=== PATIENT | female | born 1950 | race Caucasian/White ===

== ENCOUNTER 2016-06-08 10:07 | Outpatient (RCR) | payer MEDICARE ==
[~2016-06-08 10:07] MED LIST: AGM875T PO; AMOX-358 PO; DOCU-143 PO; EST.1TD TD; HYDR-3062 PO; HYDR-3583 PO; NAPR550T PO; [UNRECOGNIZED DRUG - CODE] PO; [UNRECOGNIZED DRUG - CODE] PO
[2016-06-08 11:20] LABS: BASOPHILS % (AUTO) 1 % (0-10); EOSINOPHILS # (AUTO) 0.5 10^3/uL (0.0-0.3); EOSINOPHILS % (AUTO) 8 % (0-10); LYMPHOCYTES # (AUTO) 1.6 X 10^3 (1.0-4.0); LYMPHOCYTES % (AUTO) 28 % (12-44); MEAN CORPUSCULAR HEMOGLOBIN 31 PG (25-34); MEAN CORPUSCULAR HGB CONC 33 G/DL (32-36); MEAN CORPUSCULAR VOLUME 92 FL (80-99); MEAN PLATELET VOLUME 9.4 FL (7.4-10.4); MONOCYTES % (AUTO) 17 % (0-12); NEUTROPHILS # (AUTO) 2.7 X 10^3 (1.8-7.8); NEUTROPHILS % (AUTO) 47 % (42-75); PLATELET COUNT 248 10^3/uL (130-400); RED BLOOD COUNT 4.29 10^6/uL (4.35-5.85); RED CELL DISTRIBUTION WIDTH 12.8 % (10.0-14.5); WHITE BLOOD COUNT 5.7 10^3/uL (4.3-11.0)
[2016-06-08 12:40] LABS: ALANINE AMINOTRANSFERASE 34 U/L (0-55); ALBUMIN 4.1 G/DL (3.2-4.5); ANION GAP 11 MMOL/L (5-14); ASPARTATE AMINO TRANSFERASE 31 U/L (5-34); BILIRUBIN,TOTAL 0.6 MG/DL (0.1-1.0); BLOOD UREA NITROGEN 9 MG/DL (7-18); BUN/CREATININE RATIO 12; CALCIUM 9.3 MG/DL (8.5-10.1); CARBON DIOXIDE 24 MMOL/L (21-32); CHLORIDE 107 MMOL/L (98-107); CREATININE SERUM 0.74 MG/DL (0.60-1.30); GFR ESTIMATED > 60; GLUCOSE 103 MG/DL (70-105); POTASSIUM 4.5 MMOL/L (3.6-5.0); SODIUM 142 MMOL/L (135-145); TOTAL PROTEIN 6.8 G/DL (6.4-8.2)
[2016-07-04] MEDS ORDERED: AZIT250T PO (14:33)
== END 2016-09-06 | disposition home or self-care (01) ==
LOC: ONC 10:07
PROVIDERS: ATTEND Internal Medicine Hematology & Oncology
DX: Z08 Encounter for follow-up examination after completed treatment for malignant neoplasm (principal); Z85.42 Personal history of malignant neoplasm of other parts of uterus; Z90.710 Acquired absence of both cervix and uterus; K43.9 Ventral hernia without obstruction or gangrene
CPT/HCPCS: 36415; 80053; 85025; 99213

== ENCOUNTER 2016-07-04 12:35 | Emergency (ER) | payer MEDICARE ==
[~2016-07-04] VITALS: Ht 162.6 cm; Wt 100.7 kg
[2016-07-04 13:19] LABS: BASOPHILS # (AUTO) 0.1 10^3/uL (0.0-0.1); BASOPHILS % (AUTO) 1 % (0-10); EOSINOPHILS # (AUTO) 0.1 10^3/uL (0.0-0.3); EOSINOPHILS % (AUTO) 1 % (0-10); LYMPHOCYTES # (AUTO) 1.7 X 10^3 (1.0-4.0); LYMPHOCYTES % (AUTO) 19 % (12-44); MEAN CORPUSCULAR HEMOGLOBIN 31 PG (25-34); MEAN CORPUSCULAR HGB CONC 35 G/DL (32-36); MEAN CORPUSCULAR VOLUME 89 FL (80-99); MEAN PLATELET VOLUME 9.8 FL (7.4-10.4); MONOCYTES # (AUTO) 1.3 X 10^3 (0.0-1.0); MONOCYTES % (AUTO) 15 % (0-12); NEUTROPHILS # (AUTO) 5.5 X 10^3 (1.8-7.8); NEUTROPHILS % (AUTO) 64 % (42-75); PLATELET COUNT 291 10^3/uL (130-400); RED BLOOD COUNT 4.76 10^6/uL (4.35-5.85); RED CELL DISTRIBUTION WIDTH 15.4 % (10.0-14.5); WHITE BLOOD COUNT 8.7 10^3/uL (4.3-11.0)
--- NOTE | 2016-07-04 13:59 | ED Respiratory ---
General Chief Complaint: General Problems/Pain Stated Complaint: L SIDE/SHOULDER/ARM PAIN Nursing Triage Note: Pt presents to ED with c/o left side abdominal pain that radiate up into left shoulder, pt reports pain is worse with deep breaths, crackles noted to LLL, temp 99.6 in triage, last dose of Tylenol at 0400. Source: patient, RN/MD Exam Limitations: no limitations History of Present Illness Time seen by provider: 13:56 Initial Comments This 66-year-old white female presents with left-sided chest pain made worse with deep breath and cough. Patient has had associated fever. The patient's chest pain and cough began yesterday. The patient has had no associated nausea, vomiting, diarrhea, dysuria, radiation of the sharp left- sided chest pain, or similar episode in the past. Patient's cough is nonproductive. Allergies and Home Medications Allergies Coded Allergies: Sulfa (Sulfonamide Antibiotics) (Unverified Allergy, Unknown, RASH, N/V, 05/13/16) Home Medications Folic Acid/Multivit-Min/Lutein 1 Each Combo..pkg 1 EACH PO DAILY (Reported) Constitutional: chills fever EENTM: No ear pain, No throat pain Respiratory: coughNo short of breath Cardiovascular: No chest pain Gastrointestinal: No abdominal pain, No diarrhea, No nausea, No vomiting Genitourinary: No dysuria, No frequency Musculoskeletal: No back pain Skin: No rash Psychiatric/Neurological: No Symptoms Reported Hematologic/Lymphatic: No Symptoms Reported Past Sscdtzx-Vhfjyu-Fchbpy Hx Patient Social History Alcohol Use: Denies Use Recreational Drug Use: No Smoking Status: Never a Smoker Recent Foreign Travel: No Contact w/Someone Who Travel: No Recent Infectious Disease Expo: No Recent Hopitalizations: No Physical Abuse Screen: No Sexual Abuse: No Immunizations Up To Date Date of Pneumonia Vaccine: May 13, 2008 Seasonal Allergies Seasonal Allergies: Yes Surgeries HX Surgeries: Yes (BASAL CELL REMOVED FROM UPPER LIP, LESION FROM LEG, D&C, WISDOM TEETH, herni) Surgeries: Hysterectomy Respiratory Hx Respiratory Disorders: No Cardiovascular Hx Cardiac Disorders: No Neurological Hx Neurological Disorders: No Reproductive System Hx Reproductive Disorders: No Sexually Transmitted Disease: No HIV/AIDS: No Genitourinary Hx Genitourinary Disorders: No Gastrointestinal Hx Gastrointestinal Disorders: Yes Gastrointestinal Disorders: Diverticulosis Musculoskeletal Hx Musculoskeletal Disorders: No Endocrine Hx Endocrine Disorders: No HEENT HX ENT Disorders: Yes (GLASSES) Loss of Vision: Bilateral Cancer Hx Cancer: Yes (ENDOMETRIAL CANCER, BASAL CELL SKIN CA) Cancer: Skin, Uterine Psychosocial Hx Psychiatric Problems: No Integumentary HX Skin/Integumentary Disorder: No Blood Transfusions Hx Blood Disorders: No Adverse Reaction to a Blood Tr: No Reviewed Nursing Assessment Reviewed/Agree w Nursing PMH: Yes Physical Exam Vital Signs Vital Sign - Last 12Hours 07/04/16 12:38 Temp 99.6 Pulse 88 Resp 20 B/P 165/83 Pulse Ox 96 O2 Delivery Room Air Capillary Refill : Less Than 3 Seconds General Appearance: WD/WN no apparent distress Eyes: Bilateral Eye Normal Inspection HEENT: normal ENT inspection Neck: normal inspection Respiratory: rales Cardiovascular: regular rate, rhythm Gastrointestinal: normal bowel sounds non tender soft Extremities: normal range of motion non-tender Skin: normal color warm/dry Progress/Results/Core Measures Results/Orders Lab Results Laboratory Tests Test 07/04/16 12:55 07/04/16 13:30 Range/Units Basophils # (Auto) 0.1 0.0-0.1 10^3/uL Basophils (%) (Auto) 1 0-10 % Eosinophils # (Auto) 0.1 0.0-0.3 10^3/uL Eosinophils (%) (Auto) 1 0-10 % Hematocrit 42 35-52 % Hemoglobin 14.7 11.5-16.0 G/DL Lymphocytes # (Auto) 1.7 1.0-4.0 X 10^3 Lymphocytes (%) (Auto) 19 12-44 % Mean Corpuscular Hemoglobin 31 25-34 PG Mean Corpuscular Hemoglobin Concent 35 32-36 G/DL Mean Corpuscular Volume 89 80-99 FL Mean Platelet Volume 9.8 7.4-10.4 FL Monocytes # (Auto) 1.3 H 0.0-1.0 X 10^3 Monocytes (%) (Auto) 15 H 0-12 % Neutrophils # (Auto) 5.5 1.8-7.8 X 10^3 Neutrophils (%) (Auto) 64 42-75 % Platelet Count 291 130-400 10^3/uL Red Blood Count 4.76 4.35-5.85 10^6/uL Red Cell Distribution Width 15.4 H 10.0-14.5 % White Blood Count 8.7 4.3-11.0 10^3/uL Alanine Aminotransferase (ALT/SGPT) 31 0-55 U/L Albumin 4.3 3.2-4.5 G/DL Alkaline Phosphatase 79 40-136 U/L Anion Gap 12 5-14 MMOL/L Aspartate Amino Transf (AST/SGOT) 29 5-34 U/L BUN/Creatinine Ratio 14 Blood Urea Nitrogen 10 7-18 MG/DL Calcium Level 9.5 8.5-10.1 MG/DL Carbon Dioxide Level 20 L 21-32 MMOL/L Chloride Level 109 H 98-107 MMOL/L Creatinine 0.73 0.60-1.30 MG/DL Estimat Glomerular Filtration Rate > 60 Glucose Level 119 H 70-105 MG/DL Lactic Acid Level 1.5 0.5-2.0 MMOL/L Potassium Level 4.3 3.6-5.0 MMOL/L Sodium Level 141 135-145 MMOL/L Total Bilirubin 0.8 0.1-1.0 MG/DL Total Protein 7.4 6.4-8.2 G/DL My Orders Orders-JOSE TRUONG MD Cbc With Automated Diff (07/04/16 13:12) Comprehensive Metabolic Panel (07/04/16 13:12) Lactic Acid Analyzer (07/04/16 13:26) Blood Culture (07/04/16 13:26) Chest Pa/Lat (2 View) (07/04/16 13:34) Ceftriaxone Injection (Rocephin Injectio (07/04/16 14:15) Rocephin 1 Gm Iv (1 X Dose) (07/04/16 14:30) Azithromycin Tablet (Zithromax Tablet) (07/04/16 14:30) Vital Signs/I&O Vital Sign - Last 12Hours 07/04/16 12:38 Temp 99.6 Pulse 88 Resp 20 B/P 165/83 Pulse Ox 96 O2 Delivery Room Air Blood Pressure Mean: 110 Progress Note : Time: 14:26 Progress Note The patient's CBC demonstrated unremarkable white count. There was evidence of a left lower lobe atelectasis or infiltrate. I discussed treatment options with the patient and she wishes to go home. Patient received a gram of Rocephin IV and 500 mg of azathioprine myosin orally I'll have the patient return for another gram of Rocephin tomorrow and ask her to finish her azithromycin over the next 4 days. I asked that she follow up closely with her primary care physician on Wednesday. Departure Impression Impression: Primary Impression: Pneumonia Qualified Code: J18.1 - Lobar pneumonia, unspecified organism Disposition: HOME, SELF-CARE Condition: Improved Departure-Patient Inst. Decision time for Depature: 14:32 Referrals: MEKHI LEE MD (PCP) Primary Care Physician Patient Instructions: Community-Acquired Pneumonia, Adult (DC) Add. Discharge Instructions: Return tomorrow to the emergency department for a gram of Rocephin IV. Zithromax as prescribed. Vicodin for pain. Follow-up with your doctor on Wednesday. Return to the emergency department if you have any acute problems or questions. All discharge instructions reviewed with patient and/or family. Voiced understanding. Scripts Azithromycin (Zithromax)250 Mg [id number] Mg PO UD #6 TAB TAKE 2 TABLETS TODAY, THEN TAKE 1 TABLET DAILY FOR 4 MORE DAYS Prov:JOSE TRUONG MD 07/04/16 JOSE TRUONG MD Jul 04, 2016 13:59
--- NOTE | 2016-07-04 14:02 | Diagnostic Imaging Report ---
INDICATION: Left-sided chest pain. FINDINGS: There is minimal opacity in the left base posteriorly, likely partial atelectasis. No definite pleural fluid. The right lung is clear. IMPRESSION: Minimal left basilar opacity suggests subsegmental atelectasis. Dictated by: Dictated on workstation # [id number]
[2016-07-04 14:07] LABS: ALANINE AMINOTRANSFERASE 31 U/L (0-55); ALBUMIN 4.3 G/DL (3.2-4.5); ANION GAP 12 MMOL/L (5-14); ASPARTATE AMINO TRANSFERASE 29 U/L (5-34); BILIRUBIN,TOTAL 0.8 MG/DL (0.1-1.0); BLOOD UREA NITROGEN 10 MG/DL (7-18); BUN/CREATININE RATIO 14; CALCIUM 9.5 MG/DL (8.5-10.1); CARBON DIOXIDE 20 MMOL/L (21-32); CHLORIDE 109 MMOL/L (98-107); CREATININE SERUM 0.73 MG/DL (0.60-1.30); GFR ESTIMATED > 60; GLUCOSE 119 MG/DL (70-105); POTASSIUM 4.3 MMOL/L (3.6-5.0); SODIUM 141 MMOL/L (135-145); TOTAL PROTEIN 7.4 G/DL (6.4-8.2)
[2016-07-04] MEDS ORDERED: cefTRIAXone INJECTION 1,000 MG in NORMAL SALINE (BAXTER MINI) 50 ML IV ONE ×2 (14:15→14:30)
[2016-07-04] MEDS ORDERED: AZITHROMYCIN 250 MG TAB (ZITHROMAX) PO ONE (14:30)
[2016-07-04] MEDS ORDERED: AZIT250T PO (14:33)
[2016-07-04 14:38] VITALS: BP 151/92
== END 2016-07-04 14:38 | disposition home or self-care (01) ==
LOC: EDUNIT# 12:35 → ER 12:37
DX: J18.9 Pneumonia, unspecified organism (principal)
CPT/HCPCS: 36415; 71020; 80053; 83605; 85025; 87040; 96374

== ENCOUNTER 2016-07-05 10:31 | Emergency (ER) | payer MEDICARE ==
[~2016-07-05] VITALS: Ht 162.6 cm; Wt 100.7 kg
[~2016-07-05 10:31] MED LIST changes: +AZIT250T PO
[2016-07-05] MEDS ORDERED: cefTRIAXone 1 GM (ROCEPHIN) VIAL IM ONE (11:15)
[2016-07-05] MEDS ORDERED: LIDOCAINE 1% INJ 20 ML (XYLOCAINE) VIAL INJ ONE (11:15)
--- NOTE | 2016-07-05 11:19 | ED Cough/URI ---
General Chief Complaint: Cough/Cold/Flu Symptoms Stated Complaint: NEEDS IV Nursing Triage Note: here as instructed from 07/04/16 for repeat antibiotic IM, pt with dx pneumonia Source: patient Exam Limitations: no limitations History of Present Illness Time seen by provider: 11:13 Initial Comments Patient was seen in emergency department yesterday for an acute upper respiratory infection and started on Rocephin and Zithromax. She returns for a Rocephin injection today. Patient reports significant interim improvement. Allergies and Home Medications Allergies Coded Allergies: Sulfa (Sulfonamide Antibiotics) (Unverified Allergy, Unknown, RASH, N/V, 05/13/16) Home Medications Azithromycin 250 Mg Tablet #6 250 MG PO UD TAKE 2 TABLETS TODAY, THEN TAKE 1 TABLET DAILY FOR 4 MORE DAYS Prescribed by: JOSE TRUONG MD on 07/04/16 1433 Folic Acid/Multivit-Min/Lutein 1 Each Combo..pkg 1 EACH PO DAILY (Reported) Constitutional: chills (patient was having chills yesterday which have now abated.) EENTM: No ear pain, No throat pain Respiratory: see HPI cough Cardiovascular: No chest pain (patient states that her cough is improving last 24 hours) Gastrointestinal: No abdominal pain, No diarrhea, No nausea Genitourinary: No dysuria, No frequency Musculoskeletal: No muscle pain Skin: No rash Psychiatric/Neurological: No Symptoms Reported Hematologic/Lymphatic: No Symptoms Reported Past Pintfqq-Telxxr-Ipvuwx Hx Patient Social History Alcohol Use: Denies Use Recreational Drug Use: No Smoking Status: Never a Smoker Recent Foreign Travel: No Contact w/Someone Who Travel: No Recent Infectious Disease Expo: No Recent Hopitalizations: No Physical Abuse Screen: No Sexual Abuse: No Immunizations Up To Date Date of Pneumonia Vaccine: May 13, 2008 Seasonal Allergies Seasonal Allergies: Yes Surgeries HX Surgeries: Yes (BASAL CELL REMOVED FROM UPPER LIP, LESION FROM LEG, D&C, WISDOM TEETH, herni) Surgeries: Hysterectomy Respiratory Hx Respiratory Disorders: No Cardiovascular Hx Cardiac Disorders: No Neurological Hx Neurological Disorders: No Reproductive System Hx Reproductive Disorders: No Sexually Transmitted Disease: No HIV/AIDS: No Genitourinary Hx Genitourinary Disorders: No Gastrointestinal Hx Gastrointestinal Disorders: Yes Gastrointestinal Disorders: Diverticulosis Musculoskeletal Hx Musculoskeletal Disorders: No Endocrine Hx Endocrine Disorders: No HEENT HX ENT Disorders: Yes (GLASSES) Loss of Vision: Bilateral Cancer Hx Cancer: Yes (ENDOMETRIAL CANCER, BASAL CELL SKIN CA) Cancer: Skin, Uterine Psychosocial Hx Psychiatric Problems: No Integumentary HX Skin/Integumentary Disorder: No Blood Transfusions Hx Blood Disorders: No Adverse Reaction to a Blood Tr: No Reviewed Nursing Assessment Reviewed/Agree w Nursing PMH: Yes Physical Exam Vital Signs Vital Sign - Last 12Hours 07/05/16 10:58 Temp 98.4 Pulse 83 Resp 18 B/P 127/76 Pulse Ox 92 O2 Delivery Room Air Capillary Refill : Less Than 3 Seconds General Appearance: WD/WN no apparent distress Eyes: Bilateral Eye Normal Inspection HEENT: normal ENT inspection Neck: normal inspection Respiratory: lungs clear Cardiovascular: regular rate, rhythm Gastrointestinal: normal bowel sounds non tender soft Extremities: normal inspection Neurologic/Psychiatric: no motor/sensory deficits Skin: normal color warm/dry Progress/Results/Core Measures Results/Orders My Orders Orders-JOSE TRUONG MD Ceftriaxone Injection (Rocephin Injectio (07/05/16 11:15) Lidocaine 1% Injection (Xylocaine 1% Inj (07/05/16 11:15) Medications Given in ED Current Medications Medications Dose Ordered Sig/Daniel Route Start Time Stop Time Status Last Admin Dose Admin Ceftriaxone Sodium 1,000 mg ONCE ONCE IM 07/05/16 11:15 07/05/16 11:16 07/05/16 11:11 1,000 MG Lidocaine HCl 2.1 ml ONCE ONCE INJ 07/05/16 11:15 07/05/16 11:16 07/05/16 11:12 2.1 ML Vital Signs/I&O Vital Sign - Last 12Hours 07/05/16 07/05/16 07/05/16 07/05/16 10:58 10:58 11:11 11:12 Temp 98.4 98.4 98.4 Pulse 83 Resp 18 B/P 127/76 Pulse Ox 92 O2 Delivery Room Air Room Air Blood Pressure Mean: 93 Progress Note : Time: 11:18 Progress Note Patient received a gram Rocephin IM. Patient was asked follow up with her caregiver tomorrow for further evaluation and care. She was asked continue with the Z-Edil that was started yesterday. Departure Impression Impression: Primary Impression: Upper respiratory infection Qualified Code: J06.9 - Acute upper respiratory infection, unspecified Disposition: HOME, SELF-CARE Condition: Improved Departure-Patient Inst. Decision time for Depature: 11:19 Referrals: MEKHI LEE MD (PCP) Primary Care Physician Patient Instructions: Acute Bronchitis, Adult (DC) Add. Discharge Instructions: Close follow-up with her doctor tomorrow. Continue with the Zithromax. Return if any problems. All discharge instructions reviewed with patient and/or family. Voiced understanding. JOSE TRUONG MD Jul 05, 2016 11:19
[2016-07-05 11:22] VITALS: BP 127/76
== END 2016-07-05 11:22 | disposition home or self-care (01) ==
LOC: EDUNIT# 10:31 → ER 10:33
DX: J06.9 Acute upper respiratory infection, unspecified (principal)
CPT/HCPCS: 96372; 99282

== ENCOUNTER → 2017-06-08 | Outpatient (CLI) | payer MEDICARE ==
[2017-06-08 14:36] LABS: BASOPHILS % (AUTO) 1 % (0-10); EOSINOPHILS # (AUTO) 0.1 10^3/uL (0.0-0.3); EOSINOPHILS % (AUTO) 1 % (0-10); LYMPHOCYTES # (AUTO) 1.7 X 10^3 (1.0-4.0); LYMPHOCYTES % (AUTO) 34 % (12-44); MEAN CORPUSCULAR HEMOGLOBIN 31 PG (25-34); MEAN CORPUSCULAR HGB CONC 34 G/DL (32-36); MEAN CORPUSCULAR VOLUME 92 FL (80-99); MEAN PLATELET VOLUME 9.7 FL (7.4-10.4); MONOCYTES # (AUTO) 0.8 X 10^3 (0.0-1.0); MONOCYTES % (AUTO) 16 % (0-12); NEUTROPHILS # (AUTO) 2.3 X 10^3 (1.8-7.8); NEUTROPHILS % (AUTO) 47 % (42-75); PLATELET COUNT 223 10^3/uL (130-400); RED BLOOD COUNT 4.59 10^6/uL (4.35-5.85); RED CELL DISTRIBUTION WIDTH 12.6 % (10.0-14.5); WHITE BLOOD COUNT 4.9 10^3/uL (4.3-11.0)
[2017-06-08 14:56] LABS: ALANINE AMINOTRANSFERASE 41 U/L (0-55); ALBUMIN 4.3 GM/DL (3.2-4.5); ANION GAP 10 MMOL/L (5-14); ASPARTATE AMINO TRANSFERASE 33 U/L (5-34); BILIRUBIN,TOTAL 0.6 MG/DL (0.1-1.0); BLOOD UREA NITROGEN 15 MG/DL (7-18); BUN/CREATININE RATIO 19; CALCIUM 9.1 MG/DL (8.5-10.1); CARBON DIOXIDE 25 MMOL/L (21-32); CHLORIDE 106 MMOL/L (98-107); CREATININE SERUM 0.77 MG/DL (0.60-1.30); GFR ESTIMATED > 60; GLUCOSE 100 MG/DL (70-105); POTASSIUM 3.9 MMOL/L (3.6-5.0); SODIUM 141 MMOL/L (135-145); TOTAL PROTEIN 7.2 GM/DL (6.4-8.2)
== END ==
LOC: EDSTATUS 09-07 12:56 → ONC 14:30
PROVIDERS: ATTEND Internal Medicine Hematology & Oncology
DX: Z08 Encounter for follow-up examination after completed treatment for malignant neoplasm (principal); Z85.42 Personal history of malignant neoplasm of other parts of uterus; Z90.710 Acquired absence of both cervix and uterus; K43.9 Ventral hernia without obstruction or gangrene
CPT/HCPCS: 80053; 85025; 99213

== ENCOUNTER → 2017-06-08 | Outpatient (CLI) | payer MEDICARE ==
[2017-06-08 16:00] LABS: THYROID STIMULATING HORMONE 1.48 UIU/ML (0.35-4.94)
== END ==
LOC: LAB 14:25
PROVIDERS: ATTEND Family Medicine
DX: E78.00 Pure hypercholesterolemia, unspecified (principal); R53.83 Other fatigue; R53.81 Other malaise
CPT/HCPCS: 36415; 80061; 84443

== ENCOUNTER → 2017-06-17 | Outpatient (CLI) | payer MEDICARE ==
--- NOTE | 2017-06-17 12:38 | Diagnostic Imaging Report ---
EXAMINATION: DEXA scan. INDICATION: Osteopenia. TECHNIQUE: Bone mineral density estimated based on dual energy radiography over the lumbar spine and femoral necks, was performed. FINDINGS: The lumbar spine T-score is -0.8. T score over the femoral neck on both sides is -0.3. IMPRESSION: Bone mineral density measurements are near the lower limits of normal. Dictated by: Dictated on workstation # [id number]
== END ==
LOC: RAD 11:47
PROVIDERS: ATTEND Internal Medicine Hematology & Oncology
DX: M85.80 Other specified disorders of bone density and structure, unspecified site (principal); Z78.0 Asymptomatic menopausal state
CPT/HCPCS: 77080

== ENCOUNTER → 2018-04-29 | Outpatient (CLI) | payer MEDICARE ==
[~2018-04-29] MED LIST changes: +CHLO-159 PO; +PHEN-571 PO
--- NOTE | 2018-04-29 17:37 | Diagnostic Imaging Report ---
INDICATION: Routine screening. COMPARISON: Prior mammogram from 04/27/2017 and 06/14/2015. EXAMINATION: 2D and 3D bilateral screening mammography was performed with CAD. The current study was also evaluated with a Computer Aided Detection (CAD) system. FINDINGS: Scattered fibroglandular densities are identified, bilaterally. Benign-appearing nodular densities in both breasts appear stable. No spiculated mass or malignant appearing microcalcifications are seen. The axillae are unremarkable. IMPRESSION: No mammographic features suspicious for malignancy are identified. ACR BI-RADS Category 2: Benign findings. Result letter will be mailed to the patient. Note: At least 10% of breast cancer is not imaged by mammography. Dictated by: Dictated on workstation # [id number]
== END ==
LOC: RAD 08:33
PROVIDERS: ATTEND Family Medicine
DX: Z12.31 Encounter for screening mammogram for malignant neoplasm of breast (principal)
CPT/HCPCS: 77067

== ENCOUNTER 2018-05-04 06:15 | Outpatient (CLI) | payer MEDICARE ==
[~2018-05-04] VITALS: Ht 162.6 cm; Wt 100.7 kg
[~2018-05-04 06:15] MED LIST changes: -CHLO-159 PO; -PHEN-571 PO
[2018-05-04] MEDS ORDERED: CHLO-159 PO (12:06)
[2018-05-04] MEDS ORDERED: PHEN-571 PO (12:06)
== END 2018-05-04 12:08 | disposition home or self-care (01) ==
LOC: PREOP 06:15
PROVIDERS: ATTEND Surgery
DX: Z01.818 Encounter for other preprocedural examination (principal)

== ENCOUNTER 2018-05-09 09:33 | Day surgery (SDC) | payer MEDICARE ==
[~2018-05-09] VITALS: Ht 162.6 cm; Wt 100.7 kg
[~2018-05-09 09:33] MED LIST changes: +CHLO-159 PO; +PHEN-571 PO
--- OUTSIDE RECORDS SUMMARY | 2018-05-09 09:42 | XMS REPORT ---
Author Author DIDIER PEREZ Organization [facility] Address [address] [place] [address] Care Team Providers Care Creative Guru Name Role Phone DIDIER PEREZ Unavailable PROBLEMS Unknown Problems ALLERGIES Substance Reaction Event Type Date Status Sulfacetamide Sodium rash Drug Allergy Feb, Active ENCOUNTERS Encounter Location Date Diagnosis [facility] [address] [facility] [id number], [place] [address] Feb, Urinary frequency R35.0 and Acute cystitis without hematuria N30.00 IMMUNIZATIONS No Known Immunizations SOCIAL HISTORY Never Assessed REASON FOR VISIT urinary frequency, denies dysuria. been like this for 2 weeks. [email or web address] PLAN OF CARE Activity Details Follow Up prn Reason: VITAL SIGNS Height 64 in 2018-03-26 Weight 224.0 lbs 2018-03-26 Temperature 98.3 degrees Fahrenheit 2018-03-26 Heart Rate 72 bpm 2018-03-26 Respiratory Rate 18 2018-03-26 BMI 38.45 kg/m2 2018-03-26 Blood pressure systolic 126 mmHg 2018-03-26 Blood pressure diastolic 78 mmHg 2018-03-26 MEDICATIONS Medication Instructions Dosage Frequency Start Date End Date Duration Status Macrobid 100 MG Orally every 12 hrs 1 capsule with food 12h Feb, Mar, 3 days Active Tylenol Arthritis Pain Active AZO Urinary Pain 97.5 MG Orally Three times a day 2 tablets after meals 8h 2 day(s) Active RESULTS No Results PROCEDURES Procedure Date Ordered Result Body Site URINALYSIS, AUTO, W/O SCOPE Mar 26, 2018 LAB NOT BILLED BY [facility] Mar 26, 2018 FQ VISIT ESTABLISHED PATIENT Mar 26, 2018 INSTRUCTIONS MEDICATIONS ADMINISTERED No Known Medications MEDICAL (GENERAL) HISTORY Type Description Date Medical History Endometrial Cancer Surgical History EDGARD with BSO 2010 Surgical History Umbilical hernia 2015
--- NOTE | 2018-05-09 09:43 | History & Physicial ---
History of Present Illness History of Present Illness Reason for visit/HPI to undergo screening colonoscopy Date of Admission 05/09/18 Date Seen by a Provider: May 09, 2018 Time Seen by a Provider: 09:42 I consulted on this patient on 05/09/18 09:41 Attending Physician Cj Bob MD Admitting Physician Armando San MD Consult Allergies and Home Medications Allergies Coded Allergies: Sulfa (Sulfonamide Antibiotics) (Unverified Allergy, Unknown, RASH, N/V, 05/13/16) Home Medications Chlorpheniramine Maleate 4 Mg Tablet, 4 MG PO Q4H PRN for nasal congestion, ( Reported) Phenylephrine/Dm/Acetaminop/GG 1 Each Tablet, 1 EACH PO Q6H PRN for CONGESTION, (Reported) Patient Home Medication List Home Medication List Reviewed: Yes Past Erokcvv-Sjyrwg-Wteizp Hx Patient Social History Marrital Status: Employed/Student: retired Recent Foreign Travel: No Contact w/other who traveled: No Recent Hopitalizations: No Immunizations Up To Date Date of Pneumonia Vaccine: May 13, 2008 Seasonal Allergies Seasonal Allergies: Yes Surgeries Yes Hysterectomy Respiratory No Cardiovascular No Neurological No Reproductive System Hx Reproductive Disorders: No Sexually Transmitted Disease: No HIV/AIDS: No Gastrointestinal Yes Diverticulosis Musculoskeletal No HEENT Loss of Vision: Bilateral Cancer Yes Skin, Uterine Type of Treatment: Surgical Intervention Blood Transfusions Adverse Reaction to a Blood Tr: No Review of Systems Constitutional: no symptoms reported EENTM: no symptoms reported Respiratory: no symptoms reported Cardiovascular: no symptoms reported Gastrointestinal: no symptoms reported Genitourinary: no symptoms reported Musculoskeletal: no symptoms reported Skin: no symptoms reported Psychiatric/Neurological: No Symptoms Reported Physical Exam Vital Signs Capillary Refill : Height, Weight, BMI Height: 5'4.00" Weight: 222lbs. 0.0oz. 100.944110zw; 38.1 BMI Method:Stated General Appearance: No Apparent Distress Neck: Normal Inspection Respiratory: Lungs Clear Cardiovascular: Regular Rate, Rhythm Gastrointestinal: Non Tender, Soft Rectal: Deferred Neurologic/Psychiatric: Alert, Oriented x3 Skin: Warm/Dry Assessment/Plan Assessment and Plan lady to undergo screening colonoscopy. Discussed in detail Admission Diagnosis Admission Status: Other (Outpt Proc) CJ BOB MD May 09, 2018 09:43
--- NOTE | 2018-05-09 09:43 | Conscious Sedation/ASA ---
Conscious Sedation Pre-Proced Time 09:43 ASA Score 2 For ASA 3 and 4: Consider anesthesia and medical clearance. Also, for patients with a history of failed moderate sedation consider anesthesia. Airway Lungs Heart ASA score ASA 1: a normal healthy patient ASA 2: a patient with a mild systemic disease (mid diabetes, controlled hypertension, obesity ASA 3: a patient with a severe systemic disease that limits activity (angina , COPD, prior Myocardial infarction) ASA 4: a patient with an incapacitating disease that is a constant threat to life (CHF, renal failure) ASA 5: a moribund patient not expected to survive 24 hrs. (ruptured aneurysm) ASA 6: a declared brain patient whose organs are being harvested. For emergent operations, add the letter E after the classification Mallampati Classification Grade 1 Sedation Plan Discussed options with patient/fam The patient is an appropriate candidate to undergo the planned procedure, sedation, and anesthesia. The patient immediately re-assessed prior to indication. CJ BOB MD May 09, 2018 09:43
--- OUTSIDE RECORDS SUMMARY | 2018-05-09 09:44 | XMS REPORT | Continuity of Care Document ---
Author Author [facility] Organization [facility] Address Unknown Phone Unavailable Allergies Active Description Code Type Severity Reaction Onset Reported/Identified Relationship to Patient Clinical Status Yes Sulfa (Sulfonamide Antibiotics) [id number] Drug Allergy Unknown RASH, N/V 05/13/2016 Medications There is no data. Problems Date Dx Coded Attending Type Code Diagnosis Diagnosed By 05/27/1599 VICKI SOLORZANO MD Ot E66.01 MORBID (SEVERE) OBESITY DUE TO EXCESS CA 05/27/1599 VICKI SOLORZANO MD Ot L98.492 NON-PRS CHRONIC ULCER OF SKIN OF SITES W 03/24/2011 Ot 626.8 MENSTRUAL DISORDER NEC 04/21/2011 Ot 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 04/21/2011 Ot 214.1 LIPOMA SKIN NEC 06/27/2014 MICHAEL GARCIA Ot V10.42 06/27/2014 MICHAEL GARCIA Ot V67.09 06/27/2014 MICHAEL GARCIA Ot V88.01 12/24/2014 JEANE BROWN ANCILLARY SPECIALIST Ot 553.20 12/24/2014 JEANE BROWN ANCILLARY SPECIALIST Ot V10.42 12/24/2014 JEANE BROWN ANCILLARY SPECIALIST Ot V67.09 12/24/2014 JEANE BROWN ANCILLARY SPECIALIST Ot V88.01 01/03/2015 JEANE BROWN ANCILLARY SPECIALIST Ot 553.20 01/03/2015 JEANE BROWN ANCILLARY SPECIALIST Ot V10.42 01/03/2015 JEANE BROWN ANCILLARY SPECIALIST Ot V67.09 01/03/2015 JEANE BROWN ANCILLARY SPECIALIST Ot V88.01 01/26/2015 JEANE BROWN ANCILLARY SPECIALIST Ot 553.20 01/26/2015 JEANE BROWN ANCILLARY SPECIALIST Ot V10.42 01/26/2015 JEANE BROWN ANCILLARY SPECIALIST Ot V67.09 01/26/2015 JEANE BROWN Ot V88.01 06/12/2015 Ot 626.6 06/12/2015 Ot V49.81 06/12/2015 Ot 611.72 06/12/2015 Ot V16.3 06/12/2015 Ot V76.11 06/12/2015 Ot 626.8 06/12/2015 Ot V72.83 06/12/2015 Ot V74.8 06/12/2015 Ot 182.0 06/12/2015 Ot 753.10 06/12/2015 Ot V81.5 06/12/2015 Ot 182.0 06/12/2015 Ot V72.63 06/12/2015 Ot V74.8 06/12/2015 Ot 182.0 06/12/2015 Ot V10.42 06/12/2015 Ot V45.77 06/12/2015 Ot V67.09 06/12/2015 Ot 611.72 06/12/2015 Ot V76.12 06/12/2015 Ot 610.0 06/12/2015 Ot 793.80 06/12/2015 Ot 610.0 06/12/2015 Ot V10.42 06/12/2015 Ot V45.77 06/12/2015 Ot V67.09 06/12/2015 BROWNJEANE Zendejas ANCILLARY SPECIALIST Ot V10.42 06/12/2015 BROWNJEANE Zendejas ANCILLARY SPECIALIST Ot V45.77 06/12/2015 BROWNJEANE Zendejas ANCILLARY SPECIALIST Ot V67.09 06/12/2015 MICHAEL GARCIA N Ot 553.20 06/12/2015 RADHASUADOSIEL N Ot V10.42 06/12/2015 SUAD GARCIAOSIEL N Ot V45.77 06/12/2015 MICHAEL GARCIA N Ot V67.09 06/12/2015 JEANE BROWN ANCILLARY SPECIALIST Ot 553.20 06/12/2015 BROWN JEANE S ANCILLARY SPECIALIST Ot V10.42 06/12/2015 STEPHANIE JEANE S ANCILLARY SPECIALIST Ot V67.09 06/12/2015 BROWNJEANE Zendejas ANCILLARY SPECIALIST Ot V88.01 06/12/2015 STEPHANIE JEANE Zendejas ANCILLARY SPECIALIST Ot 183.0 06/12/2015 STEPHANIE JEANE S ANCILLARY SPECIALIST Ot 553.1 06/12/2015 JEANE BROWN ANCILLARY SPECIALIST Ot 553.20 06/12/2015 JEANE BROWN ANCILLARY SPECIALIST Ot 571.8 06/12/2015 JEANE BROWN ANCILLARY SPECIALIST Ot 789.03 06/12/2015 MICHAEL GARCIA N Ot V10.42 06/12/2015 RADHA, SUADOSIEL N Ot V67.09 06/12/2015 RADHAMICHAEL MONTANEZ N Ot V88.01 06/12/2015 JEANE BROWN ANCILLARY SPECIALIST Ot 553.20 06/12/2015 JEANE BROWN ANCILLARY SPECIALIST Ot V10.42 06/12/2015 JEANE BROWN ANCILLARY SPECIALIST Ot V67.09 06/12/2015 JEANE BROWN ANCILLARY SPECIALIST Ot V88.01 06/12/2015 MICHAEL GARCIA N Ot K43.9 06/12/2015 RADHA, BOBOSIEL N Ot Z08 06/12/2015 RADHA, MICHAEL N Ot Z85.42 06/12/2015 RADHAMICHAEL N Ot Z90.710 07/03/2015 RADHA, BOBAN N Ot C54.1 07/04/2015 RADHA, BOBAN N Ot C54.1 08/05/2015 RADHA, BOBAN N Ot K43.9 08/05/2015 RADHA, BOBOSIEL N Ot Z08 08/05/2015 RADHA, BOBOSIEL N Ot Z85.42 08/05/2015 RADHA, BOBAN N Ot Z90.710 08/08/2015 RADHA, BOBOSIEL N Ot K43.9 08/08/2015 RADHA BOBOSIEL N Ot Z08 08/08/2015 RADHA, BOBAN N Ot Z85.42 08/08/2015 RADHA, BOBAN N Ot Z90.710 09/04/2015 RADHA, SUADAN N Ot K43.9 VENTRAL HERNIA WITHOUT OBSTRUCTION OR GA 09/04/2015 RADHAMICHAEL N Ot Z08 ENCNTR FOR FOLLOW-UP EXAM AFTER TRTMT FO 09/04/2015 MICHAEL GARCIA N Ot Z85.42 PERSONAL HISTORY OF MALIGNANT NEOPLASM O 09/04/2015 RADHASUAD MONTANEZAN N Ot Z90.710 ACQUIRED ABSENCE OF BOTH CERVIX AND UTER 09/10/2015 RADHASUAD MONTANEZAN N Ot K43.9 09/10/2015 MICHAEL GARCIA Ot Z08 09/10/2015 MICHAEL GARCIA Ot Z85.42 09/10/2015 MICHAEL GARCIA Ot Z90.710 12/12/2015 JEANE BROWN ANCILLARY SPECIALIST Ot Z08 ENCNTR FOR FOLLOW-UP EXAM AFTER TRTMT FO 12/12/2015 JEANE BROWN ANCILLARY SPECIALIST Ot Z85.42 PERSONAL HISTORY OF MALIGNANT NEOPLASM O 12/12/2015 BROWNJEANE Zendejas ANCILLARY SPECIALIST Ot Z90.710 ACQUIRED ABSENCE OF BOTH CERVIX AND UTER 12/24/2015 JEANE BROWN ANCILLARY SPECIALIST Ot Z08 ENCNTR FOR FOLLOW-UP EXAM AFTER TRTMT FO 12/24/2015 JEANE BROWN ANCILLARY SPECIALIST Ot Z85.42 PERSONAL HISTORY OF MALIGNANT NEOPLASM O 12/24/2015 JEANE BROWN ANCILLARY SPECIALIST Ot Z90.710 ACQUIRED ABSENCE OF BOTH CERVIX AND UTER 01/06/2016 JEANE BROWN ANCILLARY SPECIALIST Ot Z08 ENCNTR FOR FOLLOW-UP EXAM AFTER TRTMT FO 01/06/2016 JEANE BROWN ANCILLARY SPECIALIST Ot Z85.42 PERSONAL HISTORY OF MALIGNANT NEOPLASM O 01/06/2016 JEANE BROWN ANCILLARY SPECIALIST Ot Z90.710 ACQUIRED ABSENCE OF BOTH CERVIX AND UTER 05/13/2016 Ot V16.3 FAMILY HX- BREAST MALIG 05/13/2016 Ot V76.11 SCRN MAMMO- HIGH RISK PT, MALIGNANT NEOPL 05/13/2016 Ot 626.8 MENSTRUAL DISORDER NEC 05/13/2016 Ot V72.83 EXAM PRE- OPERATIVE NEC 05/13/2016 Ot V74.8 SCREEN- BACTERIAL DIS NEC 05/13/2016 Ot 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 05/13/2016 Ot 753.10 CYSTIC KIDNEY DISEASE, UNSPECIFIED 05/13/2016 Ot V81.5 SCREEN FOR NEPHROPATHY 05/13/2016 Ot 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 05/13/2016 Ot V72.63 PRE- PROCEDURAL LABORATORY EXAMINATION 05/13/2016 Ot V74.8 SCREEN- BACTERIAL DIS NEC 05/13/2016 Ot 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 05/13/2016 Ot V10.42 HX-UTERUS MALIGNANCY NEC 05/13/2016 Ot V45.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 05/13/2016 Ot V67.09 SURGERY FOLLOW-UP, OTHER SURGERY 05/13/2016 Ot 611.72 LUMP OR MASS IN BREAST 05/13/2016 Ot V76.12 OTH SCREEN MAMMO-MALIGN NEOPLASM OF KRISTI 05/13/2016 Ot 610.0 SOLITARY CYST OF BREAST 05/13/2016 Ot 793.80 UNSPEC ABNORMAL MAMMOGRAM 05/13/2016 Ot 610.0 SOLITARY CYST OF BREAST 05/13/2016 Ot V10.42 HX-UTERUS MALIGNANCY NEC 05/13/2016 Ot V45.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 05/13/2016 Ot V67.09 SURGERY FOLLOW-UP, OTHER SURGERY 05/13/2016 JEANE BROWN ANCILLARY SPECIALIST Ot V10.42 HX-UTERUS MALIGNANCY NEC 05/13/2016 JEANE BROWN ANCILLARY SPECIALIST Ot V45.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 05/13/2016 JEANE BROWN ANCILLARY SPECIALIST Ot V67.09 SURGERY FOLLOW-UP, OTHER SURGERY 05/13/2016 MICHAEL GARCIA Ot 553.20 VENTRAL HERNIA NOS 05/13/2016 MICHAEL GARCIA Ot V10.42 HX-UTERUS MALIGNANCY NEC 05/13/2016 MICHAEL GARCIA Ot V45.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 05/13/2016 MICHAEL GARCIA Ot V67.09 SURGERY FOLLOW-UP, OTHER SURGERY 05/13/2016 JEANE BROWN ANCILLARY SPECIALIST Ot 553.20 VENTRAL HERNIA NOS 05/13/2016 JEANE BROWN ANCILLARY SPECIALIST Ot V10.42 HX-UTERUS MALIGNANCY NEC 05/13/2016 JEANE RBOWN ANCILLARY SPECIALIST Ot V67.09 SURGERY FOLLOW-UP, OTHER SURGERY 05/13/2016 JEANE BROWN ANCILLARY SPECIALIST Ot V88.01 ACQUIRED ABSENCE OF BOTH CERVIX AND UTER 05/13/2016 JEANE BROWN ANCILLARY SPECIALIST Ot 183.0 MALIGN NEOPL OVARY 05/13/2016 JEANE BROWN ANCILLARY SPECIALIST Ot 553.1 UMBILICAL HERNIA 05/13/2016 JEANE BROWN ANCILLARY SPECIALIST Ot 553.20 VENTRAL HERNIA NOS 05/13/2016 JEANE BROWN ANCILLARY SPECIALIST Ot 571.8 CHRONIC LIVER DIS NEC 05/13/2016 JEANE BROWN ANCILLARY SPECIALIST Ot 789.03 ABDOMINAL PAIN, RIGHT LOWER QUADRANT 05/13/2016 MICHAEL GARCIA Ot V10.42 HX-UTERUS MALIGNANCY NEC 05/13/2016 MICHAEL GARCIA Ot V67.09 SURGERY FOLLOW-UP, OTHER SURGERY 05/13/2016 MICHAEL GARCIA Ot V88.01 ACQUIRED ABSENCE OF BOTH CERVIX AND UTER 05/13/2016 JEANE BROWN ANCILLARY SPECIALIST Ot 553.20 VENTRAL HERNIA NOS 05/13/2016 JEANE BROWN ANCILLARY SPECIALIST Ot V10.42 HX-UTERUS MALIGNANCY NEC 05/13/2016 JEANE BROWN ANCILLARY SPECIALIST Ot V67.09 SURGERY FOLLOW-UP, OTHER SURGERY 05/13/2016 JEANE BROWN ANCILLARY SPECIALIST Ot V88.01 ACQUIRED ABSENCE OF BOTH CERVIX AND UTER 05/13/2016 MICHAEL GARCIA Ot C54.1 MALIGNANT NEOPLASM OF ENDOMETRIUM 05/13/2016 MICHAEL GARCIA Ot K43.9 VENTRAL HERNIA WITHOUT OBSTRUCTION OR GA 05/13/2016 MICHAEL GARCIA Ot Z08 ENCNTR FOR FOLLOW-UP EXAM AFTER TRTMT FO 05/13/2016 MICHAEL GARCIA Ot Z85.42 PERSONAL HISTORY OF MALIGNANT NEOPLASM O 05/13/2016 MICHAEL GARCIA Ot Z90.710 ACQUIRED ABSENCE OF BOTH CERVIX AND UTER 05/13/2016 JEANE BROWN ANCILLARY SPECIALIST Ot Z08 ENCNTR FOR FOLLOW-UP EXAM AFTER TRTMT FO 05/13/2016 BROWNJEANE ANCILLARY SPECIALIST Ot Z85.42 PERSONAL HISTORY OF MALIGNANT NEOPLASM O 05/13/2016 JEANE BRONW ANCILLARY SPECIALIST Ot Z90.710 ACQUIRED ABSENCE OF BOTH CERVIX AND UTER 05/13/2016 JEANE BROWN ANCILLARY SPECIALIST Ot 553.20 VENTRAL HERNIA NOS 05/13/2016 JEANE BROWN ANCILLARY SPECIALIST Ot V10.42 HX-UTERUS MALIGNANCY NEC 05/13/2016 JEANE BROWN ANCILLARY SPECIALIST Ot V67.09 SURGERY FOLLOW-UP, OTHER SURGERY 05/13/2016 JEANE BROWN ANCILLARY SPECIALIST Ot V88.01 ACQUIRED ABSENCE OF BOTH CERVIX AND UTER 05/13/2016 JEANE BROWN ANCILLARY SPECIALIST Ot 183.0 MALIGN NEOPL OVARY 05/13/2016 JEANE BROWN ANCILLARY SPECIALIST Ot 553.1 UMBILICAL HERNIA 05/13/2016 JEANE BROWN ANCILLARY SPECIALIST Ot 553.20 VENTRAL HERNIA NOS 05/13/2016 JEANE BROWN ANCILLARY SPECIALIST Ot 571.8 CHRONIC LIVER DIS NEC 05/13/2016 JEANE BROWN ANCILLARY SPECIALIST Ot 789.03 ABDOMINAL PAIN, RIGHT LOWER QUADRANT 05/13/2016 MICHAEL GARCIA Ot V10.42 HX-UTERUS MALIGNANCY NEC 05/13/2016 MICHAEL GARCIA Ot V67.09 SURGERY FOLLOW-UP, OTHER SURGERY 05/13/2016 MICHAEL GARCIA Dorothy Ot V88.01 ACQUIRED ABSENCE OF BOTH CERVIX AND UTER 05/13/2016 JEANE BROWN ANCILLARY SPECIALIST Ot 553.20 VENTRAL HERNIA NOS 05/13/2016 JEANE BROWN ANCILLARY SPECIALIST Ot V10.42 HX-UTERUS MALIGNANCY NEC 05/13/2016 JEANE BROWN ANCILLARY SPECIALIST Ot V67.09 SURGERY FOLLOW-UP, OTHER SURGERY 05/13/2016 JEANE BROWN ANCILLARY SPECIALIST Ot V88.01 ACQUIRED ABSENCE OF BOTH CERVIX AND UTER 05/13/2016 MICHAEL GARCIA Dorothy Ot C54.1 MALIGNANT NEOPLASM OF ENDOMETRIUM 05/13/2016 MICHAEL GARCIA Dorothy Ot K43.9 VENTRAL HERNIA WITHOUT OBSTRUCTION OR GA 05/13/2016 MICHAEL GARCIA N Ot Z08 ENCNTR FOR FOLLOW-UP EXAM AFTER TRTMT FO 05/13/2016 MICHAEL GARCIA N Ot Z85.42 PERSONAL HISTORY OF MALIGNANT NEOPLASM O 05/13/2016 MICHAEL GARCIA N Ot Z90.710 ACQUIRED ABSENCE OF BOTH CERVIX AND UTER 05/13/2016 JEANE BROWN S ANCILLARY SPECIALIST Ot Z08 ENCNTR FOR FOLLOW-UP EXAM AFTER TRTMT FO 05/13/2016 JEANE BROWN S ANCILLARY SPECIALIST Ot Z85.42 PERSONAL HISTORY OF MALIGNANT NEOPLASM O 05/13/2016 BROWN, JEANE S ANCILLARY SPECIALIST Ot Z90.710 ACQUIRED ABSENCE OF BOTH CERVIX AND UTER 05/13/2016 MICHAEL GARCIA Dorothy Ot K43.9 VENTRAL HERNIA WITHOUT OBSTRUCTION OR GA 05/13/2016 RADHAMICHAEL MONTANEZ N Ot Z08 ENCNTR FOR FOLLOW-UP EXAM AFTER TRTMT FO 05/13/2016 MICHAEL GARCIA N Ot Z85.42 PERSONAL HISTORY OF MALIGNANT NEOPLASM O 05/13/2016 RADHAMICHAEL N Ot Z90.710 ACQUIRED ABSENCE OF BOTH CERVIX AND UTER 05/13/2016 SALINAS BAIN DOTT D Ot K43.2 INCISIONAL HERNIA WITHOUT OBSTRUCTION OR 05/13/2016 BAIN DO MARGARETH D Ot Z01.812 ENCOUNTER FOR PREPROCEDURAL LABORATORY E 05/13/2016 BAIN DO, MARGARETH D Ot Z11.2 ENCOUNTER FOR SCREENING FOR OTHER BACTER 05/14/2016 BAIN DO, MARGARETH D Ot K43.2 INCISIONAL HERNIA WITHOUT OBSTRUCTION OR 05/14/2016 BAIN DO MARGARETH D Ot Z01.812 ENCOUNTER FOR PREPROCEDURAL LABORATORY E 05/14/2016 BAIN DOSALINASTT D Ot Z11.2 ENCOUNTER FOR SCREENING FOR OTHER BACTER 05/15/2016 BAIN DOMARGARETH D Ot J98.11 ATELECTASIS 05/15/2016 BAIN DOMARGARETH D Ot K43.2 INCISIONAL HERNIA WITHOUT OBSTRUCTION OR 05/15/2016 [place] DOMARGARETH D Ot Z53.31 LAPAROSCOPIC SURGICAL PROCEDURE CONVERTE 05/19/2016 BAIN DOMARGARETH Ot K43.2 INCISIONAL HERNIA WITHOUT OBSTRUCTION OR 05/19/2016 [place] DOMARGARETH D Ot Z01.812 ENCOUNTER FOR PREPROCEDURAL LABORATORY E 05/19/2016 BAIN DOMARGARETH D Ot Z11.2 ENCOUNTER FOR SCREENING FOR OTHER BACTER 05/20/2016 BAIN DOMARGARETH D Ot J98.11 ATELECTASIS 05/20/2016 BAIN DOMARGARETH D Ot K43.2 INCISIONAL HERNIA WITHOUT OBSTRUCTION OR 05/20/2016 [place] DOMARGARETH D Ot Z53.31 LAPAROSCOPIC SURGICAL PROCEDURE CONVERTE 05/25/2016 BAINMARGARETH BURT DO Ot J98.11 ATELECTASIS 05/25/2016 BAIN DOMARGARETH D Ot K43.2 INCISIONAL HERNIA WITHOUT OBSTRUCTION OR 05/25/2016 BAIN DO MARGARETH D Ot Z53.31 LAPAROSCOPIC SURGICAL PROCEDURE CONVERTE 05/26/2016 BAINMARGARETH BURT DO D Ot J98.11 ATELECTASIS 05/26/2016 BAIN DOSALINASTT D Ot K43.2 INCISIONAL HERNIA WITHOUT OBSTRUCTION OR 05/26/2016 [place] DO MARGARETH D Ot Z53.31 LAPAROSCOPIC SURGICAL PROCEDURE CONVERTE 06/08/2016 JESUS RAMIREZ, MEKHI Chino Ot R50.9 FEVER, UNSPECIFIED 06/08/2016 MEKHI LEE MD Ot R60.0 LOCALIZED EDEMA 06/08/2016 MEKHI LEE MD Ot R50.9 FEVER, UNSPECIFIED 06/08/2016 MEKHI LEE MD Ot R60.0 LOCALIZED EDEMA 06/16/2016 [place] MARGARETH KELLEY Ot J98.11 ATELECTASIS 06/16/2016 MARGARETH BAIN DO Ot K43.2 INCISIONAL HERNIA WITHOUT OBSTRUCTION OR 06/16/2016 MARGARETH BAIN DO Ot Z53.31 LAPAROSCOPIC SURGICAL PROCEDURE CONVERTE 06/17/2016 VICKI SOLORZANO MD Ot E66.01 MORBID (SEVERE) OBESITY DUE TO EXCESS CA 06/17/2016 VICKI SOLORZANO MD, Ot L98.492 NON-PRS CHRONIC ULCER OF SKIN OF SITES W 06/18/2016 Ot V10.42 HX-UTERUS MALIGNANCY NEC 06/18/2016 Ot V45.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 06/18/2016 Ot V67.09 SURGERY FOLLOW-UP, OTHER SURGERY 06/25/2016 VICKI SOLORZANO MD Ot E66.01 MORBID (SEVERE) OBESITY DUE TO EXCESS CA 06/25/2016 VICKI SOLORZANO MD, Ot L98.492 NON-PRS CHRONIC ULCER OF SKIN OF SITES W 06/30/2016 MEKHI LEE MD Ot R50.9 FEVER, UNSPECIFIED 06/30/2016 MEKHI LEE MD Ot R60.0 LOCALIZED EDEMA 07/04/2016 JOSE TRUONG MD Ot J18.9 PNEUMONIA, UNSPECIFIED ORGANISM 07/04/2016 ALEXI RAMIREZ, JOSE Zendejas Ot R07.81 PLEURODYNIA 07/05/2016 JOSE TRUONG MD Ot J06.9 ACUTE UPPER RESPIRATORY INFECTION, UNSPE 07/06/2016 JOSE TRUONG MD Ot J18.9 PNEUMONIA, UNSPECIFIED ORGANISM 07/06/2016 JOSE TRUONG MD Ot R07.81 PLEURODYNIA 07/07/2016 MICHAEL GARCIA Ot K43.9 VENTRAL HERNIA WITHOUT OBSTRUCTION OR GA 07/07/2016 MICHAEL GARCIA Ot Z08 ENCNTR FOR FOLLOW-UP EXAM AFTER TRTMT FO 07/07/2016 MICHAEL GARCIA Ot Z85.42 PERSONAL HISTORY OF MALIGNANT NEOPLASM O 07/07/2016 MICHAEL GARCIA Ot Z90.710 ACQUIRED ABSENCE OF BOTH CERVIX AND UTER 07/08/2016 JESUS RAMIREZ, MEKHI Chino Ot R50.9 FEVER, UNSPECIFIED 07/08/2016 JESUS RAMIREZ, MEKHI Chino Ot R60.0 LOCALIZED EDEMA 07/12/2016 ALEXI RAMIREZ, JOSE Zendejas Ot J18.9 PNEUMONIA, UNSPECIFIED ORGANISM 07/12/2016 ALEXI RAMIREZ, JOSE Zendejas Ot R07.81 PLEURODYNIA 08/18/2016 MICHAEL GARCIA Ot K43.9 VENTRAL HERNIA WITHOUT OBSTRUCTION OR GA 08/18/2016 MICHAEL GARCIA Ot Z08 ENCNTR FOR FOLLOW-UP EXAM AFTER TRTMT FO 08/18/2016 MICHAEL GARCIA Ot Z85.42 PERSONAL HISTORY OF MALIGNANT NEOPLASM O 08/18/2016 MICHAEL GARCIA Ot Z90.710 ACQUIRED ABSENCE OF BOTH CERVIX AND UTER 08/20/2016 MICHAEL GARCIA Ot K43.9 VENTRAL HERNIA WITHOUT OBSTRUCTION OR GA 08/20/2016 MICHAEL GARCIA Ot Z08 ENCNTR FOR FOLLOW-UP EXAM AFTER TRTMT FO 08/20/2016 MICHAEL GARCIA Ot Z85.42 PERSONAL HISTORY OF MALIGNANT NEOPLASM O 08/20/2016 MICHAEL GARCIA Ot Z90.710 ACQUIRED ABSENCE OF BOTH CERVIX AND UTER 09/06/2016 MICHAEL GARCIA Ot K43.9 VENTRAL HERNIA WITHOUT OBSTRUCTION OR GA 09/06/2016 MICHAEL GARCIA Ot Z08 ENCNTR FOR FOLLOW-UP EXAM AFTER TRTMT FO 09/06/2016 MICHAEL GARCIA Ot Z85.42 PERSONAL HISTORY OF MALIGNANT NEOPLASM O 09/06/2016 MICHAEL GARCIA Ot Z90.710 ACQUIRED ABSENCE OF BOTH CERVIX AND UTER 05/18/2017 JESUS RAMIREZ, MEKHI Chino Ot Z12.31 ENCNTR SCREEN MAMMOGRAM FOR MALIGNANT NE 06/04/2017 MICHAEL GARCIA Ot K43.9 VENTRAL HERNIA WITHOUT OBSTRUCTION OR GA 06/04/2017 MICHAEL GARCIA N Ot Z08 ENCNTR FOR FOLLOW-UP EXAM AFTER TRTMT FO 06/04/2017 MICHAEL GARCIA Ot Z85.42 PERSONAL HISTORY OF MALIGNANT NEOPLASM O 06/04/2017 MICHAEL GARCIA Ot Z90.710 ACQUIRED ABSENCE OF BOTH CERVIX AND UTER 06/09/2017 MICHAEL GARCIA Ot Z78.0 ASYMPTOMATIC MENOPAUSAL STATE 06/14/2017 MICHAEL GARCIA Ot K43.9 VENTRAL HERNIA WITHOUT OBSTRUCTION OR GA 06/14/2017 MICHAEL GARCIA Ot Z08 ENCNTR FOR FOLLOW-UP EXAM AFTER TRTMT FO 06/14/2017 MICHAEL GARCIA Ot Z85.42 PERSONAL HISTORY OF MALIGNANT NEOPLASM O 06/14/2017 MICHAEL GARCIA Ot Z90.710 ACQUIRED ABSENCE OF BOTH CERVIX AND UTER 06/16/2017 MICHAEL GARCIA Ot Z78.0 ASYMPTOMATIC MENOPAUSAL STATE 06/16/2017 Ot 611.72 LUMP OR MASS IN BREAST 06/16/2017 Ot V76.12 OTH SCREEN MAMMO-MALIGN NEOPLASM OF KRISTI 06/16/2017 Ot 610.0 SOLITARY CYST OF BREAST 06/16/2017 Ot 793.80 UNSPEC ABNORMAL MAMMOGRAM 06/16/2017 Ot 610.0 SOLITARY CYST OF BREAST 06/16/2017 Ot V10.42 HX-UTERUS MALIGNANCY NEC 06/16/2017 Ot V45.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 06/16/2017 Ot V67.09 SURGERY FOLLOW-UP, OTHER SURGERY 06/16/2017 JEANE BROWN ANCILLARY SPECIALIST Ot V10.42 HX-UTERUS MALIGNANCY NEC 06/16/2017 JEANE BROWN ANCILLARY SPECIALIST Ot V45.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 06/16/2017 JEANE BROWN ANCILLARY SPECIALIST Ot V67.09 SURGERY FOLLOW-UP, OTHER SURGERY 06/16/2017 MICHAEL GARCIA Ot 553.20 VENTRAL HERNIA NOS 06/16/2017 MICHAEL GARCIA Ot V10.42 HX-UTERUS MALIGNANCY NEC 06/16/2017 MICHAEL GARCIA Ot V45.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 06/16/2017 MICHAEL GARCIA Ot V67.09 SURGERY FOLLOW-UP, OTHER SURGERY 06/16/2017 JEANE BROWN ANCILLARY SPECIALIST Ot 553.20 VENTRAL HERNIA NOS 06/16/2017 JEANE BROWN ANCILLARY SPECIALIST Ot V10.42 HX-UTERUS MALIGNANCY NEC 06/16/2017 JEANE BROWN ANCILLARY SPECIALIST Ot V67.09 SURGERY FOLLOW-UP, OTHER SURGERY 06/16/2017 JEANE BROWN ANCILLARY SPECIALIST Ot V88.01 ACQUIRED ABSENCE OF BOTH CERVIX AND UTER 06/16/2017 JEANE BROWN ANCILLARY SPECIALIST Ot 183.0 MALIGN NEOPL OVARY 06/16/2017 JEANE BROWN ANCILLARY SPECIALIST Ot 553.1 UMBILICAL HERNIA 06/16/2017 JEANE BROWN ANCILLARY SPECIALIST Ot 553.20 VENTRAL HERNIA NOS 06/16/2017 JEANE BROWN ANCILLARY SPECIALIST Ot 571.8 CHRONIC LIVER DIS NEC 06/16/2017 JEANE BROWN ANCILLARY SPECIALIST Ot 789.03 ABDOMINAL PAIN, RIGHT LOWER QUADRANT 06/16/2017 MICHAEL GARCIA Ot V10.42 HX-UTERUS MALIGNANCY NEC 06/16/2017 MICHAEL GARCIA Ot V67.09 SURGERY FOLLOW-UP, OTHER SURGERY 06/16/2017 MICHAEL GARCIA Ot V88.01 ACQUIRED ABSENCE OF BOTH CERVIX AND UTER 06/16/2017 JEANE BROWN ANCILLARY SPECIALIST Ot 553.20 VENTRAL HERNIA NOS 06/16/2017 JEANE BROWN ANCILLARY SPECIALIST Ot V10.42 HX-UTERUS MALIGNANCY NEC 06/16/2017 JEANE BROWN ANCILLARY SPECIALIST Ot V67.09 SURGERY FOLLOW-UP, OTHER SURGERY 06/16/2017 JEANE BROWN ANCILLARY SPECIALIST Ot V88.01 ACQUIRED ABSENCE OF BOTH CERVIX AND UTER 06/16/2017 MICHAEL GARCIA Ot C54.1 MALIGNANT NEOPLASM OF ENDOMETRIUM 06/16/2017 JEANE BROWN ANCILLARY SPECIALIST Ot Z08 ENCNTR FOR FOLLOW-UP EXAM AFTER TRTMT FO 06/16/2017 BROWNJEANE Zendejas ANCILLARY SPECIALIST Ot Z85.42 PERSONAL HISTORY OF MALIGNANT NEOPLASM O 06/16/2017 JEANE BROWN ANCILLARY SPECIALIST Ot Z90.710 ACQUIRED ABSENCE OF BOTH CERVIX AND UTER 06/16/2017 MEKHI LEE MD Ot R50.9 FEVER, UNSPECIFIED 06/16/2017 MEKHI LEE MD Ot R60.0 LOCALIZED EDEMA 06/16/2017 MICHAEL GARCIA Ot K43.9 VENTRAL HERNIA WITHOUT OBSTRUCTION OR GA 06/16/2017 MICHAEL GARCIA Ot Z08 ENCNTR FOR FOLLOW-UP EXAM AFTER TRTMT FO 06/16/2017 MICHAEL GARCIA Ot Z85.42 PERSONAL HISTORY OF MALIGNANT NEOPLASM O 06/16/2017 MICHAEL GARCIA Dorothy Ot Z90.710 ACQUIRED ABSENCE OF BOTH CERVIX AND UTER 06/16/2017 MEKHI LEE MD Ot Z12.31 ENCNTR SCREEN MAMMOGRAM FOR MALIGNANT NE 06/16/2017 MEKHI LEE MD Ot E78.00 PURE HYPERCHOLESTEROLEMIA, UNSPECIFIED 06/16/2017 MEKHI LEE MD Ot R53.81 OTHER MALAISE 06/16/2017 MEKHI LEE MD Ot R53.83 OTHER FATIGUE 06/16/2017 MICHAEL GARCIA Dorothy Ot Z78.0 ASYMPTOMATIC MENOPAUSAL STATE 06/22/2017 RADHA MICHAEL De La Cruz Ot K43.9 VENTRAL HERNIA WITHOUT OBSTRUCTION OR GA 06/22/2017 RADHAMICHAEL Ot Z08 ENCNTR FOR FOLLOW-UP EXAM AFTER TRTMT FO 06/22/2017 RADHAMICHAEL Ot Z85.42 PERSONAL HISTORY OF MALIGNANT NEOPLASM O 06/22/2017 RADHA, MICHAEL De La Cruz Ot Z90.710 ACQUIRED ABSENCE OF BOTH CERVIX AND UTER 06/30/2017 MEKHI LEE MD Ot E78.00 PURE HYPERCHOLESTEROLEMIA, UNSPECIFIED 06/30/2017 MEKHI LEE MD Ot R53.81 OTHER MALAISE 06/30/2017 MEKHI LEE MD Ot R53.83 OTHER FATIGUE 07/08/2017 RADHA SUADOSIEL Dorothy Ot M85.80 OTH DISRD OF BONE DENSITY AND STRUCTURE, 07/08/2017 RADHA SUADOSIEL Dorothy Ot Z78.0 ASYMPTOMATIC MENOPAUSAL STATE 08/04/2017 RADHA, MICHAEL De La Cruz Ot E78.00 PURE HYPERCHOLESTEROLEMIA, UNSPECIFIED 08/04/2017 RADHA MICHAEL De La Cruz Ot K43.9 VENTRAL HERNIA WITHOUT OBSTRUCTION OR GA 08/04/2017 RADHA MICHAEL De La Cruz Ot R53.81 OTHER MALAISE 08/04/2017 RADHAMICHAEL Ot R53.83 OTHER FATIGUE 08/04/2017 RADHA, MICHAEL De La Cruz Ot Z08 ENCNTR FOR FOLLOW-UP EXAM AFTER TRTMT FO 08/04/2017 RADHAMICHAEL Ot Z85.42 PERSONAL HISTORY OF MALIGNANT NEOPLASM O 08/04/2017 RADHA, MICHAEL De La Cruz Ot Z90.710 ACQUIRED ABSENCE OF BOTH CERVIX AND UTER 09/06/2017 MICHAEL GARCIA Ot E78.00 PURE HYPERCHOLESTEROLEMIA, UNSPECIFIED 09/06/2017 MICHAEL GARCIA Ot K43.9 VENTRAL HERNIA WITHOUT OBSTRUCTION OR GA 09/06/2017 MICHAEL GARCIA Ot R53.81 OTHER MALAISE 09/06/2017 MICHAEL GARCIA Ot R53.83 OTHER FATIGUE 09/06/2017 MICHAEL GARCIA Ot Z08 ENCNTR FOR FOLLOW-UP EXAM AFTER TRTMT FO 09/06/2017 MICHAEL GARCIA Ot Z85.42 PERSONAL HISTORY OF MALIGNANT NEOPLASM O 09/06/2017 MICHAEL GARCIA Ot Z90.710 ACQUIRED ABSENCE OF BOTH CERVIX AND UTER 04/29/2018 JEANE BROWN ANCILLARY SPECIALIST Ot V10.42 HX-UTERUS MALIGNANCY NEC 04/29/2018 JEANE BROWN ANCILLARY SPECIALIST Ot V45.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 04/29/2018 JEANE BROWN ANCILLARY SPECIALIST Ot V67.09 SURGERY FOLLOW-UP, OTHER SURGERY 04/29/2018 MICHAEL GARCIA N Ot 553.20 VENTRAL HERNIA NOS 04/29/2018 MICHAEL GARCIA Ot V10.42 HX-UTERUS MALIGNANCY NEC 04/29/2018 MICHAEL GARCIA Ot V45.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 04/29/2018 MICHAEL GARCIA Ot V67.09 SURGERY FOLLOW-UP, OTHER SURGERY 04/29/2018 JEANE BROWN ANCILLARY SPECIALIST Ot 553.20 VENTRAL HERNIA NOS 04/29/2018 JEANE BROWN ANCILLARY SPECIALIST Ot V10.42 HX-UTERUS MALIGNANCY NEC 04/29/2018 JEANE BROWN ANCILLARY SPECIALIST Ot V67.09 SURGERY FOLLOW-UP, OTHER SURGERY 04/29/2018 JEAEN BROWN ANCILLARY SPECIALIST Ot V88.01 ACQUIRED ABSENCE OF BOTH CERVIX AND UTER 04/29/2018 JEANE BROWN ANCILLARY SPECIALIST Ot 183.0 MALIGN NEOPL OVARY 04/29/2018 JEANE BROWN ANCILLARY SPECIALIST Ot 553.1 UMBILICAL HERNIA 04/29/2018 JEANE BROWN ANCILLARY SPECIALIST Ot 553.20 VENTRAL HERNIA NOS 04/29/2018 JEANE BROWN ANCILLARY SPECIALIST Ot 571.8 CHRONIC LIVER DIS NEC 04/29/2018 JEANE BROWN ANCILLARY SPECIALIST Ot 789.03 ABDOMINAL PAIN, RIGHT LOWER QUADRANT 04/29/2018 RADHA MICHAEL De La Cruz Ot V10.42 HX-UTERUS MALIGNANCY NEC 04/29/2018 RADHA MICHAEL De La Cruz Ot V67.09 SURGERY FOLLOW-UP, OTHER SURGERY 04/29/2018 RADHA MICHAEL De La Cruz Ot V88.01 ACQUIRED ABSENCE OF BOTH CERVIX AND UTER 04/29/2018 BROWNJEANE Zendejas ANCILLARY SPECIALIST Ot 553.20 VENTRAL HERNIA NOS 04/29/2018 JEANE BROWN ANCILLARY SPECIALIST Ot V10.42 HX-UTERUS MALIGNANCY NEC 04/29/2018 JEANE BROWN ANCILLARY SPECIALIST Ot V67.09 SURGERY FOLLOW-UP, OTHER SURGERY 04/29/2018 JEANE BROWN ANCILLARY SPECIALIST Ot V88.01 ACQUIRED ABSENCE OF BOTH CERVIX AND UTER 04/29/2018 RADHA MICHAEL De La Cruz Ot C54.1 MALIGNANT NEOPLASM OF ENDOMETRIUM 04/29/2018 JEANE BROWN ANCILLARY SPECIALIST Ot Z08 ENCNTR FOR FOLLOW-UP EXAM AFTER TRTMT FO 04/29/2018 BROWNJEANE Zendejas ANCILLARY SPECIALIST Ot Z85.42 PERSONAL HISTORY OF MALIGNANT NEOPLASM O 04/29/2018 STEPHANIEJEANE ANCILLARY SPECIALIST Ot Z90.710 ACQUIRED ABSENCE OF BOTH CERVIX AND UTER 04/29/2018 MEKHI LEE MD Ot R50.9 FEVER, UNSPECIFIED 04/29/2018 MEKHI LEE MD Ot R60.0 LOCALIZED EDEMA 04/29/2018 MICHAEL GARCIA Ot E78.00 PURE HYPERCHOLESTEROLEMIA, UNSPECIFIED 04/29/2018 MICHAEL GARCIA Ot K43.9 VENTRAL HERNIA WITHOUT OBSTRUCTION OR GA 04/29/2018 MICHAEL GARCIA Ot R53.81 OTHER MALAISE 04/29/2018 MICHAEL GARCIA Ot R53.83 OTHER FATIGUE 04/29/2018 MICHAEL GARCIA Ot Z08 ENCNTR FOR FOLLOW-UP EXAM AFTER TRTMT FO 04/29/2018 MICHAEL GARCIA Ot Z85.42 PERSONAL HISTORY OF MALIGNANT NEOPLASM O 04/29/2018 MICHAEL GARCIA Ot Z90.710 ACQUIRED ABSENCE OF BOTH CERVIX AND UTER 04/29/2018 MEKHI LEE MD Ot Z12.31 ENCNTR SCREEN MAMMOGRAM FOR MALIGNANT NE 04/29/2018 MEKHI LEE MD Ot E78.00 PURE HYPERCHOLESTEROLEMIA, UNSPECIFIED 04/29/2018 MEKHI LEE MD Ot R53.81 OTHER MALAISE 04/29/2018 MEKHI LEE MD, Ot R53.83 OTHER FATIGUE 04/29/2018 MICHAEL GARCIA Ot M85.80 OTH DISRD OF BONE DENSITY AND STRUCTURE, 04/29/2018 MICHAEL GARCIA Ot Z78.0 ASYMPTOMATIC MENOPAUSAL STATE 04/29/2018 MEKHI LEE MD, Ot Z12.31 ENCNTR SCREEN MAMMOGRAM FOR MALIGNANT NE 05/03/2018 MEKHI LEE MD, Ot Z12.31 ENCNTR SCREEN MAMMOGRAM FOR MALIGNANT NE 05/05/2018 LISBETH RAMIREZ, CJ Carroll Ot Z01.818 ENCOUNTER FOR OTHER PREPROCEDURAL EXAMIN Procedures Code Description Performed By Performed On 40.29 SIMP EXC LYMPH STRUC NEC 04/17/2011 65.61 OTH REMOVE BOTH OVARIES/ TUBES 04/17/2011 68.49 OTHER AND UNSPECIFIED TOTAL ABDOMINAL HY 04/17/2011 71.3 LOCAL VULVAR EXCIS NEC 04/17/2011 Results Test Result Range Complete blood count (CBC) with automated white blood cell (WBC) differential - 05/13/16 13:00 Blood leukocytes automated count (number/volume) 5.8 10*3/uL 4.3-11.0 Blood erythrocytes automated count (number/volume) 4.72 10*6/uL 4.35-5.85 Venous blood hemoglobin measurement (mass/volume) 14.8 g/dL 11.5-16.0 Blood hematocrit (volume fraction) 43 % 35-52 Automated erythrocyte mean corpuscular volume 91 [foz_us] 80-99 Automated erythrocyte mean corpuscular hemoglobin (mass per erythrocyte) 31 pg 25-34 Automated erythrocyte mean corpuscular hemoglobin concentration measurement ( mass/volume) 34 g/dL 32-36 Automated erythrocyte distribution width ratio 12.9 % 10.0-14.5 Automated blood platelet count (count/volume) 237 10*3/uL 130-400 Automated blood platelet mean volume measurement 9.8 [foz_us] 7.4-10.4 Automated blood neutrophils/100 leukocytes 44 % 42-75 Automated blood lymphocytes/100 leukocytes 39 % 12-44 Blood monocytes/100 leukocytes 13 % 0-12 Automated blood eosinophils/100 leukocytes 3 % 0-10 Automated blood basophils/100 leukocytes 1 % 0-10 Blood neutrophils automated count (number/volume) 2.6 10*3 1.8-7.8 Blood lymphocytes automated count (number/volume) 2.3 10*3 1.0-4.0 Blood monocytes automated count (number/volume) 0.8 10*3 0.0-1.0 Automated eosinophil count 0.2 10*3/uL 0.0-0.3 Automated blood basophil count (count/volume) 0.1 10*3/uL 0.0-0.1 Methicillin resistant Staphylococcus aureus (MRSA) screening culture - 13:00 Methicillin resistant Staphylococcus aureus (MRSA) screening culture NEG NRG Complete blood count (CBC) with automated white blood cell (WBC) differential - 05/15/16 05:08 Blood leukocytes automated count (number/volume) 11.7 10*3/uL 4.3-11.0 Blood erythrocytes automated count (number/volume) 4.22 10*6/uL 4.35-5.85 Venous blood hemoglobin measurement (mass/volume) 13.3 g/dL 11.5-16.0 Blood hematocrit (volume fraction) 39 % 35-52 Automated erythrocyte mean corpuscular volume 92 [foz_us] 80-99 Automated erythrocyte mean corpuscular hemoglobin (mass per erythrocyte) 32 pg 25-34 Automated erythrocyte mean corpuscular hemoglobin concentration measurement ( mass/volume) 34 g/dL 32-36 Automated erythrocyte distribution width ratio 12.6 % 10.0-14.5 Automated blood platelet count (count/volume) 195 10*3/uL 130-400 Automated blood platelet mean volume measurement 9.7 [foz_us] 7.4-10.4 Automated blood neutrophils/100 leukocytes 80 % 42-75 Automated blood lymphocytes/100 leukocytes 8 % 12-44 Blood monocytes/100 leukocytes 12 % 0-12 Automated blood eosinophils/100 leukocytes 0 % 0-10 Automated blood basophils/100 leukocytes 0 % 0-10 Blood neutrophils automated count (number/volume) 9.3 10*3 1.8-7.8 Blood lymphocytes automated count (number/volume) 0.9 10*3 1.0-4.0 Blood monocytes automated count (number/volume) 1.4 10*3 0.0-1.0 Automated eosinophil count 0.0 10*3/uL 0.0-0.3 Automated blood basophil count (count/volume) 0.0 10*3/uL 0.0-0.1 Complete urinalysis with reflex to culture - 05/15/16 07:58 Urine color determination YELLOW NRG Urine clarity determination CLEAR NRG Urine pH measurement by test strip 6 5-9 Specific gravity of urine by test strip 1.010 1.016- 1.022 Urine protein assay by test strip, semi-quantitative NEGATIVE NEGATIVE Urine glucose detection by automated test strip NEGATIVE NEGATIVE Erythrocytes detection in urine sediment by light microscopy NEGATIVE NEGATIVE Urine ketones detection by automated test strip NEGATIVE NEGATIVE Urine nitrite detection by test strip NEGATIVE NEGATIVE Urine total bilirubin detection by test strip NEGATIVE NEGATIVE Urine urobilinogen measurement by automated test strip (mass/volume) NORMAL NORMAL Urine leukocyte esterase detection by dipstick NEGATIVE NEGATIVE Automated urine sediment erythrocyte count by microscopy (number/high power field) NONE NRG Automated urine sediment leukocyte count by microscopy (number/high power field ) NONE NRG Bacteria detection in urine sediment by light microscopy NEGATIVE NRG Crystals detection in urine sediment by light microscopy NONE NRG Casts detection in urine sediment by light microscopy NONE NRG Mucus detection in urine sediment by light microscopy NEGATIVE NRG Complete urinalysis with reflex to culture NO NRG Complete blood count (CBC) with automated white blood cell (WBC) differential - 07/04/16 12:55 Blood leukocytes automated count (number/volume) 8.7 10*3/uL 4.3-11.0 Blood erythrocytes automated count (number/volume) 4.76 10*6/uL 4.35-5.85 Venous blood hemoglobin measurement (mass/volume) 14.7 g/dL 11.5-16.0 Blood hematocrit (volume fraction) 42 % 35-52 Automated erythrocyte mean corpuscular volume 89 [foz_us] 80-99 Automated erythrocyte mean corpuscular hemoglobin (mass per erythrocyte) 31 pg 25-34 Automated erythrocyte mean corpuscular hemoglobin concentration measurement ( mass/volume) 35 g/dL 32-36 Automated erythrocyte distribution width ratio 15.4 % 10.0-14.5 Automated blood platelet count (count/volume) 291 10*3/uL 130-400 Automated blood platelet mean volume measurement 9.8 [foz_us] 7.4-10.4 Automated blood neutrophils/100 leukocytes 64 % 42-75 Automated blood lymphocytes/100 leukocytes 19 % 12-44 Blood monocytes/100 leukocytes 15 % 0-12 Automated blood eosinophils/100 leukocytes 1 % 0-10 Automated blood basophils/100 leukocytes 1 % 0-10 Blood neutrophils automated count (number/volume) 5.5 10*3 1.8-7.8 Blood lymphocytes automated count (number/volume) 1.7 10*3 1.0-4.0 Blood monocytes automated count (number/volume) 1.3 10*3 0.0-1.0 Automated eosinophil count 0.1 10*3/uL 0.0-0.3 Automated blood basophil count (count/volume) 0.1 10*3/uL 0.0-0.1 Blood lactic acid measurement (moles/volume) - 07/04/16 13:30 Blood lactic acid measurement (moles/volume) 1.5 mmol/L 0.5-2.0 Comprehensive metabolic panel - 07/04/16 13:30 Serum or plasma sodium measurement (moles/volume) 141 mmol/L 135-145 Serum or plasma potassium measurement (moles/volume) 4.3 mmol/L 3.6-5.0 Serum or plasma chloride measurement (moles/volume) 109 mmol/L 98-107 Carbon dioxide 20 mmol/L 21-32 Serum or plasma anion gap determination (moles/volume) 12 mmol/L 5-14 Serum or plasma urea nitrogen measurement (mass/volume) 10 mg/dL 7-18 Serum or plasma creatinine measurement (mass/volume) 0.73 mg/dL 0.60-1.30 Serum or plasma urea nitrogen/creatinine mass ratio 14 NRG Serum or plasma creatinine measurement with calculation of estimated glomerular filtration rate > NRG Serum or plasma glucose measurement (mass/volume) 119 mg/dL 70-105 Serum or plasma calcium measurement (mass/volume) 9.5 mg/dL 8.5-10.1 Serum or plasma total bilirubin measurement (mass/volume) 0.8 mg/dL 0.1-1.0 Serum or plasma alkaline phosphatase measurement (enzymatic activity/volume) 79 U/L 40-136 Serum or plasma aspartate aminotransferase measurement (enzymatic activity/ volume) 29 U/L 5-34 Serum or plasma alanine aminotransferase measurement (enzymatic activity/volume ) 31 U/L 0-55 Serum or plasma protein measurement (mass/volume) 7.4 g/dL 6.4-8.2 Serum or plasma albumin measurement (mass/volume) 4.3 g/dL 3.2-4.5 Bacterial blood culture - 07/04/16 13:30 Bacterial blood culture NG NR Bacterial blood culture - 07/04/16 13:39 Bacterial blood culture NG [facility] Lipid 1996 panel - 06/08/17 14:25 Serum or plasma triglyceride measurement (mass/volume) 164 mg/dL <150 Serum or plasma cholesterol measurement (mass/volume) 229 mg/dL < 200 Serum or plasma cholesterol in HDL measurement (mass/volume) 47 mg/ dL 40-60 Cholesterol in LDL [mass/volume] in serum or plasma by direct assay 151 mg/dL 1-129 Serum or plasma cholesterol in VLDL measurement (mass/volume) 33 mg/ dL 5-40 THYROID STIMULATING HORMONE - 06/08/17 14:25 THYROID STIMULATING HORMONE 1.48 u[iU]/mL 0.35-4.94 CULTURE, URINE - 03/26/18 08:03 CULTURE, URINE, ROUTINE SEE NOTE NRG Encounters ACCT No. Visit Date/Time Discharge Status Pt. Type Provider Facility Loc./Unit Complaint [id number] 05/04/2018 06:15:00 05/04/2018 12:08:00 DIS Outpatient CJ BOB MD [facility] PREOP COLONOSCOPY [id number] 04/29/2018 08:33:00 04/29/2018 23:59:59 CLS Outpatient MEKHI LEE MD [facility] RAD SCREENING [id number] 06/17/2017 11:47:00 06/17/2017 23:59:59 CLS Outpatient MICHAEL GARCIA [facility] RAD POST MENOPAUSAL Z78.0 [id number] 06/08/2017 14:30:00 06/08/2017 23:59:59 CLS Outpatient MICHAEL GARCIA [facility] ONC [id number] 06/08/2017 14:25:00 06/08/2017 23:59:59 CLS Outpatient MEKHI LEE MD [facility] LAB [id number] 04/27/2017 15:30:00 04/27/2017 23:59:59 CLS Outpatient MEKHI LEE MD [facility] RAD SCREENING [id number] 06/08/2016 10:07:00 09/06/2016 00:01:00 DIS Outpatient MICHAEL GARCIA [facility] ONC [id number] 07/05/2016 10:33:00 07/05/2016 11:22:00 DIS Emergency JOSE TRUONG MD [facility] ER NEEDS IV [id number] 07/04/2016 12:37:00 07/04/2016 14:38:00 DIS Emergency JOSE TRUONG MD [facility] ER L SIDE/SHOULDER/ARM PAIN [id number] 06/17/2016 08:33:00 06/17/2016 16:00:00 DIS Outpatient VICKI SOLORZANO MD [facility] WOUNDCARE [id number] 06/08/2016 10:55:00 06/08/2016 23:59:59 CLS Preadmit MICHAEL GARCIA [facility] ONC [id number] 06/05/2016 14:49:00 06/05/2016 23:59:59 CLS Outpatient MEKHI LEE MD [facility] RAD DVT [id number] 05/14/2016 10:50:00 05/15/2016 16:48:00 DIS Outpatient MARGARETH BAIN DO [facility] SDC INCISIONAL HERNIA [id number] 05/13/2016 05:39:00 05/13/2016 13:43:00 DIS Outpatient MARGARETH BAIN DO [facility] PREOP INCISIONAL HERNIA [id number] 12/10/2015 10:02:00 12/10/2015 23:59:59 CLS Outpatient JEANE BROWN ANCILLARY SPECIALIST [facility] ONC [id number] 06/06/2015 09:02:00 09/04/2015 00:01:00 DIS Outpatient MICHAEL GARCIA [facility] ONC [id number] 06/12/2015 10:58:00 06/12/2015 23:59:59 CLS Outpatient MICHAEL GARCIA [facility] RAD ENDOMETRIAL CANCER [id number] 12/04/2014 08:59:00 12/04/2014 23:59:59 CLS Outpatient JEANE BROWN ANCILLARY SPECIALIST [facility] ONC [id number] 06/06/2014 09:11:00 06/06/2014 23:59:59 CLS Outpatient MICHAEL GARCIA [facility] ONC [id number] 03/07/2014 15:59:00 03/07/2014 23:59:59 CLS Outpatient JEANE BROWN ANCILLARY SPECIALIST [facility] RAD ENDOMETRIAL CANCER RIGHT QUAD PAIN [id number] 12/06/2013 10:03:00 12/06/2013 23:59:59 CLS Outpatient JEANE BROWN ANCILLARY SPECIALIST [facility] ONC [id number] 06/07/2013 09:03:00 06/07/2013 23:59:59 CLS Outpatient MICHAEL GARCIA [facility] ONC [id number] 12/07/2012 13:57:00 12/07/2012 23:59:59 CLS Outpatient JEANE BROWN ANCILLARY SPECIALIST [facility] ONC [id number] 05/09/2018 10:30:00 PEN Preadliv BOB MD, CJ Carroll [facility] ENDO SCREENING [id number] 06/15/2012 12:43:00 Document Registration [id number] 06/03/2012 10:26:00 Document Registration [id number] 03/17/2012 12:53:00 Document Registration [id number] 03/03/2012 07:53:00 Document Registration [id number] 12/15/2011 08:44:00 Document Registration [id number] 06/03/2011 10:10:00 Document Registration [id number] 04/17/2011 05:47:00 Document Registration [id number] 04/14/2011 13:26:00 Document Registration [id number] 04/03/2011 11:18:00 Document Registration [id number] 03/24/2011 05:34:00 Document Registration [id number] 03/17/2011 08:20:00 Document Registration [id number] 02/25/2011 12:37:00 Document Registration [id number] 03/04/2010 11:02:00 Document Registration [id number] 02/20/2010 15:05:00 Document Registration [id number] 12/04/2014 09:00:41 ACT Document Registration [id number] 03/26/2018 13:50:00 Document Registration
[2018-05-09] MEDS ORDERED: NS IV 500 ML 500 ML IV PRN (09:49)
[2018-05-09] MEDS ORDERED: fentaNYL INJECTION 100 MCG/2 ML AMP IVP ONE (10:00)
[2018-05-09] MEDS ORDERED: MIDAZOLAM 2 MG/2 ML (VERSED) VIAL IVP ONE (10:00)
[2018-05-09] MEDS ORDERED: NS IV 500 ML 500 ML ONE (10:07)
[2018-05-09 10:20] VITALS: BP 147/70
[2018-05-09] MEDS ORDERED: MIDAZOLAM 2 MG/2 ML (VERSED) VIAL ONE ×3 (10:28→10:29)
[2018-05-09] MEDS ORDERED: fentaNYL INJECTION 100 MCG/2 ML AMP ONE ×2 (10:28)
--- NOTE | 2018-05-09 10:54 | Endo Procedure Record ---
Endo Procedure Report Date of Procedure Last Colonoscopy: Yes May 09, 2018 Surgeon (s) CJ BOB MD Post Procedure/Op Diagnosis sigmoid diverticulosis Procedure Performed colonoscopy to cecum Description of Procedure Anesthesia Type: Conscious Sedation Specimen(s) collected/removed none Description of the Procedure Indication for the procedure: This lady came in for screening colonoscopy. She reported a positive family history. Informed consent was obtained after reviewing the procedure in detail. Description of the procedure: She was placed in left lateral decubitus position and her vital signs were monitored. Conscious sedation was achieved using Versed and fentanyl. Digital rectal examination was unremarkable. The colonoscope was then introduced into the rectum and advanced to the cecum. It was then withdrawn slowly and the mucosa examined in a systematic fashion. Findings: Moderate diverticulosis. No polyps were found. She tolerated the procedure well and was taken back to the nursing area in a stable condition. Impression: Screening colonoscopy. No polyps. Positive family history. Recommend repeating in 5 years. Copy Copies To 1: MEKHI LEE MD, XAVIER M MD May 09, 2018 10:54
--- NOTE | 2018-05-09 10:55 | Discharge Inst-Simple/Standard ---
Discharge Inst-Standard Discharge Medications New, Converted or Re-Newed RX: Other Patient Instructions/Follow Up Plan of Care/Instructions/FU: Repeat colonoscopy in 5 years Activity as Tolerated: Yes Discharge Diet: No Restrictions CJ BOB MD May 09, 2018 10:55
[2018-05-09 11:25] VITALS: BP 169/78
[2018-05-09 11:55] VITALS: BP 152/85
[2018-05-09 12:50] VITALS: BP 152/85
== END 2018-05-09 12:50 | disposition home or self-care (01) ==
LOC: ENDO 09:33
PROVIDERS: ATTEND Surgery
DX: Z12.11 Encounter for screening for malignant neoplasm of colon (principal); K57.90 Diverticulosis of intestine, part unspecified, without perforation or abscess without bleeding; Z88.2 Allergy status to sulfonamides; Z85.828 Personal history of other malignant neoplasm of skin; Z85.42 Personal history of malignant neoplasm of other parts of uterus

== ENCOUNTER → 2022-04-15 | Outpatient (CLI) | payer MEDICARE ==
[~2022-04-15] MED LIST changes: +ACHD5005 PO; -HYDR-3062 PO; -PHEN-571 PO; +PHEN-574 PO
--- NOTE | 2022-04-15 11:43 | Diagnostic Imaging Report ---
Indication: Routine screening. Comparison is made with prior mammogram from 04/29/2018 and 04/27/2017. 2-D and 3-D bilateral screening mammography was performed with CAD. CAD is utilized. The current study was also evaluated with a Computer Aided Detection (CAD) system. Scattered fibroglandular densities are identified bilaterally. Nodular densities noted in both breasts appears stable. No spiculated mass or malignant-appearing microcalcifications are seen. Axillae are unremarkable. IMPRESSION: BI-RADS Category 2 No mammographic features suspicious for malignancy are identified. ACR BI-RADS Category 2: Benign findings. Result letter will be mailed to the patient. Note: At least 10% of breast cancer is not imaged by mammography. Dictated by: Dictated on workstation # [id number]
== END ==
LOC: RAD 07:47
PROVIDERS: ATTEND Family Medicine
DX: Z12.31 Encounter for screening mammogram for malignant neoplasm of breast (principal)
CPT/HCPCS: 77063; 77067